=== PATIENT | male | born 1935 | race Caucasian/White ===

== ENCOUNTER 2022-06-11 09:56 | Outpatient (CLI) | payer MEDICARE, BC | END 2022-06-11 09:57 | disposition home or self-care (01) | LOC: SCSMRI 09:56 | PROVIDERS: ATTEND Family Medicine | DX: M47.26 Other spondylosis with radiculopathy, lumbar region (principal); R29.6 Repeated falls; R29.898 Other symptoms and signs involving the musculoskeletal system; M51.16 Intervertebral disc disorders with radiculopathy, lumbar region | CPT/HCPCS: 72148 ==